=== PATIENT | male | born 1950 | race Caucasian/White ===

== ENCOUNTER → 2017-06-13 07:56 | Outpatient (CLI) | payer OTHER, SELFPAY ==
[2017-06-13 12:20] LABS: Absolute Lymphocyte Count 2.19 X10^3/ul (0.83-4.51); Basophil# 0.03 X10^3/uL; Basophil% 0.4 % (0-1); Eosinophil# 0.15 X10^3/uL; Eosinophils% 2.1 % (0-5); Hematocrit 41.9 % (40-54); Hemoglobin 14.3 g/dl (13.0-16.5); Lymphocyte # 2.19 X10^3/ul (4.0); Lymphocyte % 31.3 % (19-41); Mean Corp Hgb Conc 34.1 g/gl (32-36); Mean Corpuscular Hgb 31.6 pg (27.0-32.0); Mean Corpuscular Volume 92.5 fL (80-94); Mean Platelet Vol. 11.2 fl (6.2-12.0); Monocyte# 0.66 X10^3/uL; Monocyte% 9.4 % (0-10); Neutrophil # 3.96 X10^3/uL (2.7-7.7); Neutrophil % 56.7 % (47-70); Platelet Count 227 K/mm3 (150-450); RBC Distribution Width CV 13.3 % (11.6-14.6); Red Blood Count 4.53 M/mm3 (4.6-6.2)
[2017-06-13 12:28] LABS: POSITIVE COUNT NO; POSITIVE DIFFERENTIAL NO; POSITIVE MORPHOLOGY NO
[2017-06-13 12:33] LABS: Hemoglobin A1c 8.4 % (4.2-6.3)
[2017-06-13 12:38] LABS: Anion Gap 5 (5-15); BUN 19 mg/dL (7-18); BUN/Creat Ratio 20.9 RATIO (10-20); Chloride 103 mmol/L (98-107); Cholesterol 131 mg/dL (200); Creatinine, Serum 0.91 mg/dL (0.70-1.30); EST Glomerular Filtration Rate 89 mL/min (>60); Est Glom Filt Rate - Afr Amer 108 mL/min (>60); Glucose 179 mg/dL (74-106); High Density Lipoprotein 29 mg/dL; Magnesium 1.7 mg/dL (1.6-2.6); Potassium 4.1 mmol/L (3.5-5.1); Sodium Level 137 mmol/L (136-145); Thyroid Stim Hormone (TSH) 2.81 uIU/mL (0.358-3.74); Triglycerides 133 mg/dL; Very Low Density Lipoprotein 27 mg/dL (5-40)
[2017-06-13 12:44] LABS: Microalbumin:Creatinine Ratio 68.3 mg/g CRE (<30 mg/g CRE)
== END ==
PROVIDERS: Family Provider Family Medicine; PCP Family Medicine; Visit Provider Family Medicine
DX: I10 Essential (primary) hypertension (principal); E11.9 Type 2 diabetes mellitus without complications; I48.1 Persistent atrial fibrillation
CPT/HCPCS: 36415; 80048; 80061; 82043; 82570; 83036; 83735; 84443; 85025

== ENCOUNTER → 2017-09-02 08:21 | Outpatient (CLI) | payer OTHER, SELFPAY ==
--- NOTE | 2017-09-02 08:23 | RAD_ITS ---
STUDY: X-RAY - LEFT SHOULDER REASON FOR EXAM: Bilateral shoulder pain. TECHNIQUE: 3 view(s) of the shoulder. COMPARISON: None. FINDINGS: Normal glenohumeral articulation. There is acromioclavicular arthrosis. Normal acromion. Normal humeral head and visualized proximal humerus. The soft tissue structures are unremarkable. Normal visualized pulmonary apex. RAD/Shoulder min 2 Views IMPRESSION: Acromioclavicular arthrosis. Electronically Signed: David Puga MD at 13:27 EDT Tel , Service support ,
--- NOTE | 2017-09-02 08:23 | RAD_ITS ---
STUDY: X-RAY - RIGHT SHOULDER REASON FOR EXAM: Bilateral shoulder pain. TECHNIQUE: 3 view(s) of the shoulder. COMPARISON: None. FINDINGS: Normal glenohumeral articulation. Normal acromioclavicular joint. Normal acromion. Normal humeral head and visualized proximal humerus. The soft tissue structures are unremarkable. Normal visualized pulmonary apex. RAD/Shoulder min 2 Views IMPRESSION: Normal x-ray examination of the right shoulder. Electronically Signed: David Puga MD at 13:27 EDT Tel , Service support ,
== END ==
PROVIDERS: Family Provider Family Medicine; PCP Family Medicine; Visit Provider Orthopaedic Surgery
DX: M25.511 Pain in right shoulder (principal); M25.512 Pain in left shoulder
CPT/HCPCS: 73030

== ENCOUNTER → 2018-01-03 09:16 | Outpatient (CLI) | payer OTHER, SELFPAY ==
[2018-01-03 12:00] LABS: Absolute Lymphocyte Count 2.67 X10^3/ul (0.83-4.51); Absolute Neutrophil Count 4.1 X10^3/uL (2.0-7.7); Basophil# 0.03 X10^3/uL; Basophil% 0.4 % (0-1); Eosinophil# 0.13 X10^3/uL; Eosinophils% 1.7 % (0-5); Hematocrit 44.5 % (40-54); Hemoglobin 15.3 g/dl (13.0-16.5); Lymphocyte # 2.67 X10^3/ul (4.0); Lymphocyte % 34.9 % (19-41); Mean Corp Hgb Conc 34.4 g/gl (32-36); Mean Corpuscular Volume 93.1 fL (80-94); Mean Platelet Vol. 11.1 fl (6.2-12.0); Monocyte# 0.69 X10^3/uL; Neutrophil # 4.11 X10^3/uL (2.7-7.7); Neutrophil % 53.7 % (47-70); Platelet Count 245 K/mm3 (150-450); RBC Distribution Width CV 13.5 % (11.6-14.6); RBC Distribution Width SD 44.6 fl (35.1-43.9); Red Blood Count 4.78 M/mm3 (4.6-6.2); White Blood Count 7.7 K/mm3 (4.4-11.0)
[2018-01-03 12:06] LABS: POSITIVE COUNT NO; POSITIVE DIFFERENTIAL NO; POSITIVE MORPHOLOGY NO
[2018-01-03 12:11] LABS: Anion Gap 9 (5-15); BUN 12 mg/dL (7-18); BUN/Creat Ratio 12.8 RATIO (10-20); Calcium,Total 9.5 mg/dL (8.5-10.1); Chloride 102 mmol/L (98-107); Creatinine, Serum 0.93 mg/dL (0.70-1.30); EST Glomerular Filtration Rate 86 mL/min (>60); Est Glom Filt Rate - Afr Amer 104 mL/min (>60); Glucose 135 mg/dL (74-106); Sodium Level 141 mmol/L (136-145)
[2018-01-03 12:28] LABS: Microalbumin:Creatinine Ratio 116.2 mg/g CRE (<30 mg/g CRE)
== END ==
PROVIDERS: Family Provider Family Medicine; PCP Family Medicine; Visit Provider Family Medicine
DX: E11.9 Type 2 diabetes mellitus without complications (principal); I10 Essential (primary) hypertension; R80.9 Proteinuria, unspecified
CPT/HCPCS: 36415; 80048; 82043; 82570; 85025

== ENCOUNTER → 2018-04-05 08:43 | Outpatient (CLI) | payer OTHER, SELFPAY ==
[2018-04-05 13:28] LABS: Microalbumin:Creatinine Ratio 124.4 mg/g CRE (<30 mg/g CRE)
== END ==
PROVIDERS: Family Provider Family Medicine; PCP Family Medicine; Visit Provider Family Medicine
DX: I10 Essential (primary) hypertension (principal); E11.9 Type 2 diabetes mellitus without complications
CPT/HCPCS: 82043; 82570

== ENCOUNTER → 2018-05-05 09:10 | Outpatient (CLI) | payer OTHER, SELFPAY ==
[2018-05-05 08:53] VITALS: BMI 36.1
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
== END ==
PROVIDERS: Family Provider Family Medicine; PCP Family Medicine; Referring Provider Orthopaedic Surgery; Visit Provider Orthopaedic Surgery
DX: M25.561 Pain in right knee (principal); M79.661 Pain in right lower leg
CPT/HCPCS: 73564; 73590

== ENCOUNTER 2018-08-22 08:00 | Outpatient (RCR) | payer OTHER, SELFPAY ==
[2018-05-29 08:18] VITALS: BMI 36.1
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
--- NOTE | 2018-07-21 08:31 | HP.PTDCSUM ---
HP - PT D/C Summary It has been my pleasure to treat SEBASTIÁN CONROY under orders from Leonel Marshall DO, for the diagnosis of Lateral leg pain, h/o proximal tib/fib fracture for a total of 18 visit(s). Discharge Date: Please see the following information for a summary of their discharge status. - Subjective Subjective: No pain... tightness in the hip. Pt reports that as long as he has a railing he is ok. ( he is not consistently painfree but has great moments.(Sometimes his leg bothers him some). - Pain R Fibula pain Pain Intensity (Out of 10): 0 R hip Pain Intensity (Out of 10): 0 - Overall Improvement % Improvement: 75 - Objective Objective/Function: MMT: R knee flex 4/5 and L knee flex 4+/5, R knee ext 4/5 and L knee ext 4/5, B hip abd 4/5 and R hip ext 4-/5). Stairs: up and down recip with a little struggle with no handrail. Gait: slight antalgic gait and increase stance time on the right. Extremely tight R piriformis. Good B HS length - Goals Goal 1:: I HEP Goal Progress: Goal Met Goal 2:: Increase Le MMT (MMT at re-eval: R knee flex 4/5 and L knee flex 4+/5, R knee ext 4/5 and L knee ext 4/5, B hip abd 4/5 and R hip ext 4-/5). Goal Progress: Progressing Goal 3:: Be able to walk without an antalgic gait Goal Progress: Progressing Goal 4:: Decrease pain with walking to less than 1/10 with walking for a long period of time ( 15 min) Goal Progress: Progressing Goal 5:: Be able to stand for 20 min without having pain. Goal Progress: Goal Met - Plan Plan: Work on R piriformis flexability and R hip ER motion, R hip ext strength. 2X/ week for 2 and then 1X/ week for 2 weeks for ankle strengthening, knee strengthening, hip stretching (piriformis on the R) with HEP and US as needed. Then wean to HEP. - D/C Information If there are questions or concerns regarding this patient's physical therapy, please feel free to call me at [phone]. Thank you for the referral of this patient. Sincerely, Emily German, MPT
--- NOTE | 2018-08-22 08:32 | HP.PTDCSUM ---
HP - PT D/C Summary It has been my pleasure to treat SEBASTIÁN CONROY under orders from Leonel Marshall DO, for the diagnosis of Lateral leg pain, h/o proximal tib/fib fracture for a total of 24 visit(s). Discharge Date: 08/22/18 Please see the following information for a summary of their discharge status. - Subjective Subjective: He reports that he starts the morning out well and by the end of the day his R hip starts to bother him. His R hip pain is 1/10 and 7/10 by the end of the day. His R hip pain is worse in standing especially after sitting for a long time. He did not have a comfortable chair all day. He has no back pain. He gets some occ tightness in his fibula and he starts rolling and it feels better. He feels that he will always need ongoing. He is ready to get his hip evaluated. He thinks that the Dr will inject it. He has a recumbant bike, roller, step up, ball and has a membership to [employer]. Can not walk 15 min without having pain still. 150 yards on concrete he starts to have pain. Pt reports that he has a catch in his R hip with gait. - Pain R Fibula pain Pain Intensity (Out of 10): 0 R hip Pain Intensity (Out of 10): 1 - Overall Improvement % Improvement: 95 - Objective Objective/Function: B hip abd 4+/5, B hip flex 4/5, B hip ext 4/5, B knee flex and knee ext 4/5. Pt still has an antalgic gait but it is improved. Stairs: up and down recip with no rails for support with increase veering on descending the stairs. He still can not stand for 20 min without out pain nor walk for 15 min without having pain. - Goals Goal 1:: I HEP Goal Progress: Goal Met Goal 2:: Increase Le MMT (MMT at re-eval: R knee flex 4/5 and L knee flex 4+/5, R knee ext 4/5 and L knee ext 4/5, B hip abd 4/5 and R hip ext 4-/5). Goal Progress: Goal Met Goal 3:: Be able to walk without an antalgic gait Goal Progress: Progressing Goal 4:: Decrease pain with walking to less than 1/10 with walking for a long period of time ( 15 min) Goal Progress: Progressing Goal 5:: Be able to stand for 20 min without having pain. Goal Progress: Goal Met - Plan Plan: Pt to return to Dr Apodaca and have him take a look at his hip as he reports that he is in pain with walking, stairs, and getting up when sitting for a long time. He also reports a catch in hip hip with walking. We will DC at this time to HEP and physician referral for his R hip - D/C Information Discharge Comments: DC PT to HEP and physician referral for R hip If there are questions or concerns regarding this patient's physical therapy, please feel free to call me at [phone]. Thank you for the referral of this patient. Sincerely, Emily German, MPT
== END 2018-08-22 19:00 | disposition home or self-care (01) ==
LOC: PT 08:00
PROVIDERS: Family Provider Family Medicine; PCP Family Medicine; Visit Provider Orthopaedic Surgery
DX: M79.606 Pain in leg, unspecified (principal); Z87.81 Personal history of (healed) traumatic fracture
CPT/HCPCS: 97035; 97110; 97161; 97530

== ENCOUNTER → 2018-09-04 | Outpatient (CLI) | payer OTHER, SELFPAY ==
[2018-09-04 10:17] VITALS: BMI 36.1
--- NOTE | 2018-09-04 10:33 | RAD_ITS ---
STUDY: X-RAY - PELVIS AND RIGHT HIP REASON FOR EXAM: Male, 67 years old. Right hip pain TECHNIQUE: 3 views of the pelvis and hip. COMPARISON: None. FINDINGS: There is a non-specific bowel gas pattern. Normal visualized soft tissue structures. Normal bilateral iliac wings, sacroiliac joints and visualized sacrum. Normal bilateral superior and inferior pubic rami. Normal pubic symphysis. Normal bilateral ischial tuberosities. There are moderately severe degenerative changes with joint space narrowing of the right hip. Status post old ORIF changes of the left hip are seen. Heterotopic bone is seen superior to the left greater trochanter. RAD/HIP, UNI W/ Pelvis 2-3 Views IMPRESSION: The bony pelvis is intact with no evidence of fracture or lytic or blastic osseous process. Moderately severe degenerative changes with joint space narrowing of the right hip. Status post old ORIF changes of the left hip are seen. Heterotopic bone is noted superior to the left greater trochanter. Electronically Signed: Nikko Agee MD at 20:58 EDT , Service support ,
== END | disposition home or self-care (01) ==
LOC: HPRAD 10:32
PROVIDERS: Family Provider Family Medicine; PCP Family Medicine; Referring Provider Orthopaedic Surgery; Visit Provider Orthopaedic Surgery
DX: M25.551 Pain in right hip (principal)
CPT/HCPCS: 73502

== ENCOUNTER → 2018-09-19 | Outpatient (CLI) | payer OTHER, SELFPAY ==
[2018-09-11 07:55] VITALS: BMI 36.1
--- NOTE | 2018-09-11 11:29 | HP_ITS ---
Intake Vital Signs 09/11/18 Body Mass Index (BMI) 36.1 Intake Visit Reasons: RIGHT HIP Accompanied by: Self Is patient in pain?: Yes Pain scale (1-10): 6 Allergies Blowelh-Iju-Lzy Reductase Inhibitor Allergy (Verified 05/29/18 08:23) muscle pain Medications apixaban 5 mg tablet 5 mg PO BID 09/02/17 [History Confirmed 09/11/18] coenzyme Q10 200 mg capsule 200 mg PO QDAY 09/02/17 [History Confirmed 09/11/18] ezetimibe 10 mg tablet 10 mg PO QDAY 09/02/17 [History Confirmed 09/11/18] insulin detemir (U-100) 100 unit/mL (3 mL) subcutaneous pen 10 unit SC QHS 09/02/17 [History Confirmed 09/11/18] metformin ER 500 mg tablet,extended release 24hr 500 mg PO QDAY 09/02/17 [History Confirmed 09/11/18] metoprolol succinate ER 50 mg tablet,extended release 24 hr 50 mg PO QDAY 09/02/17 [History Confirmed 09/11/18] multivitamin tablet 1 tab PO QDAY 09/02/17 [History Confirmed 09/11/18] sitagliptin 100 mg tablet 100 mg PO QDAY 09/02/17 [History Confirmed 09/11/18] vitamin B complex tablet 1 tab PO QDAY 09/02/17 [History Confirmed 09/11/18] amlodipine 5 mg tablet 5 mg PO DAILY 05/05/18 [History Confirmed 09/11/18] losartan 100 mg-hydrochlorothiazide 25 mg tablet 1 tab PO DAILY 09/11/18 [History Confirmed 09/11/18] [facility] Medical History (Updated 09/02/17 @ 08:17 by Purvi Chowdary) Diabetes (Acute) Hypertension (Chronic) Surgical History (Updated 09/02/17 @ 08:18 by Purvi Chowdary) h/o left femur nail (Acute) HPI RIGHT HIP: Chief Complaint: Right hip Surgical H&P: Yes Details: Parts of this documentation were recorded by a scribe, this documentation accurately reflects the service provided and the decisions made by , Leonel Marshall, 09/11/18 0755. SEBASTIÁN CONROY JR is a 67 year old M here today for right hip pain. Patient has had PT for his right leg. Does have right groin pain. Wishes to discuss right total hip. Patient is on Eliquis and unable to use anti inflammatories as well as PT that was only helpful during and the relief did not extend past the appointment. ROS Const Reports system reviewed and no additional complaints, except as docu Eyes Reports system reviewed and no additional complaints, except as docu ENT Reports system reviewed and no additional complaints, except as docu Card Reports system reviewed and no additional complaints, except as docu Resp Reports system reviewed and no additional complaints, except as docu GI Reports system reviewed and no additional complaints, except as docu Reports system reviewed and no additional complaints, except as docu Musc Reports system reviewed and no additional complaints, except as docu, Reports as per HPI Skin/Breast Reports system reviewed and no additional complaints, except as docu Neuro Yes system reviewed and no additional complaints, except as docu Psych Reports system reviewed and no additional complaints, except as docu Endo Reports system reviewed and no additional complaints, except as docu Odell/Lymph Reports system reviewed and no additional complaints, except as docu Aller/Immun Reports system reviewed and no additional complaints, except as docu Ortho Exam Right Hip Skin: No Ecchymosis, No soft tissue swelling, No Erythema internal rotation @90 degree flexion: 3 degrees external rotation @90 degree extension: 75 degrees abduction: 45 degrees Special Tests: Yes RROM flexion pain HIP: Right Hip Skin: No Ecchymosis, No soft tissue swelling, No Erythema internal rotation @90 degree flexion: 3 external rotation @90 degree extension: 75 abduction: 45 Special Tests: Yes RROM flexion pain HIP: Slightly decreased abduction compared to contralateral Supplemental Info 09/04/2018 x-ray right hip: Severe joint space narrowing subchondral sclerosis Assessment & Plan Problems 1. Primary osteoarthritis of right hip M16.11 Plan Reviewed the risks and post op restrictions including rehab at home and progression to outpatient PT. He has upcoming travel and discussed the gluteal incisional discomfort he may still have in October. He has failed conservative treatment including PT and due to his prescriptions he is unable to use anti inflammatories. Answered patients questions regarding biking and reviewed hip precautions to limit risk of dislocation. We will get clearance from his PCP, Dr Booth, and discuss holding his eliquis for at least 72 hrs prior to surgery. Instructed to eat a healthy diet and monitor his blood sugar leading to surgery to have better maintenance post op. Risks, benefits and alternatives of surgery reviewed including but not limited to bleeding, infection, nerve, artery and/or tissue damage, fracture, VTE, leg length discrepancy, dislocation, need for hip precautions, continued pain and expected post-operative course. Follow up post op or sooner if pain, swelling, numbness or associated symptoms, or concerns develop. All questions answered. Patient in agreement of plan. Medications New: losartan-hydrochlorothiazide 100-25 mg 1 tab PO DAILY Coding Level of Care Code Off vis,est,level 3 Diagnoses Primary osteoarthritis of right hip M16.11 ??Osteoarthritis type: primary 09/11/18 1130 <Electronically signed by Leonel nicole DO> Date _ Leonel Marshall DO
[2018-09-19 13:33] VITALS: BP 137/81; PULSE 73; RESP 18; TEMP 36.2; O2SAT 96; BMI 36.3
--- NOTE | 2018-09-19 15:26 | SDCEKG_ITS ---
Test Reason : Blood Pressure : / mmHG Vent. Rate : 068 BPM Atrial Rate : 258 BPM P-R Int : 000 ms QRS Dur : 092 ms QT Int : 398 ms P-R-T Axes : 000 014 019 degrees QTc Int : 423 ms Atrial fibrillation Abnormal ECG Confirmed by LORENZO MEDINA, DANI ([id number]), technical writer and editor HUGO GEORGE ([id number]) on 09/25/2018 12:59:02 PM Referred By: Leonel Marshall Confirmed By:DANIELA VENTURA MD
[2018-09-19 15:39] LABS: Hematocrit 41.9 % (40-54); Hemoglobin 14.3 g/dL (13.0-16.5); Mean Corp Hgb Conc 34.1 g/dL (32-36); Mean Corpuscular Hgb 30.4 pg (27.0-32.0); Mean Corpuscular Volume 89.1 fL (80-94); Mean Platelet Vol. 10.9 fl (6.2-12.0); Platelet Count 227 K/mm3 (150-450); RBC Distribution Width CV 12.5 % (11.6-14.6); RBC Distribution Width SD 40.8 fl (35.1-43.9)
[2018-09-19 16:17] LABS: Anion Gap 9 (5-15); BUN 12 mg/dL (7-18); BUN/Creat Ratio 14.6 RATIO (10-20); Calcium,Total 9.4 mg/dL (8.5-10.1); Chloride 103 mmol/L (98-107); Creatinine, Serum 0.82 mg/dL (0.70-1.30); EST Glomerular Filtration Rate 100 mL/min (>60); Est Glom Filt Rate - Afr Amer 120 mL/min (>60); Estimated Creatinine Clearance 104.42 ml/min; Glucose 126 mg/dL (74-106); Potassium 3.6 mmol/L (3.5-5.1); Sodium Level 141 mmol/L (136-145)
[2018-09-19 17:22] LABS: Hemoglobin A1c 7.7 % (4.2-6.3)
--- NOTE | 2018-09-21 14:17 | CASEMGMT ---
Attempted to contact patient to discuss discharge plans for upcoming surgery. Call went straight to voicemail. Karina Carter LPN Clinical Support
--- OUTSIDE RECORDS SUMMARY | 2018-10-21 18:47 | XMS RPT_ITS | CCD ---
:1950 External Reference #:[id number] Author Organization [employer] Care Team Providers Name Role Phone TERRENCE, A Unavailable Unavailable TERRENCE, A Unavailable Unavailable TERRENCE, A Unavailable Unavailable Allergies Reported Allergen Reaction(s) Severity Date of Onset Location Hmg-Coa Reductase AOF 10-07-2014 - [facility] Main Inhibitors (Statins) [place] Repository Translations: [ [id number] REDUCTASE INHIBITORS] Problems Category Problem Name Status Date Location Cardiac dysrhythmias Persistent atrial Active 10-12-2013 - Cl [facility] fibrillation [place] (0000 0) Results Result Name Value Range Unit Interpretation Flag Date Location progress on 2017-09 Protein mass HNO ID: [id number]: Nikos sandoval 10-11-2017 [place] conc KaminskiService: (none)Author Type: Clinic PhysicianType: Progress NotesFiled: [place] 10/11/2017 9:25 AMNote Text:Heart and ([id number]) [facility] InstituteRobert and [facility] Department of Cardiovascular MedicineSECTION OF CLINICAL CARDIOLOGYOUTPATIENT VISIT DATE October 11, 2017OUTPATIENT VISIT TYPEESTABLISHEDPATIENT: Sebastián Conory Jr.DATE OF : 3DATE: 10/11/2017INTERVAL HISTORY: Mr. Conroy comes for a follow up visit for chronic afib. The last visit with me was 1 year ago. He is not having any problems.He has been checking his blood pressure at home and he typically runs MJL791-951 mmHg. He estimates that he has more 140's than 130's.ROS:Negative for cough, wheezing, shortness of breath and chest painNegative for leg swelling, palpitations, claudication, orthopnea,paroxysmal nocturnal, dyspnea, syncope.All other reviewed and negative other than HPI.CURRENT MEDICATIONS:insulin detemir (LEVEMIR) 100 unit/mL (3 mL) inpn injection Inject 66Units subcutaneously daily at bedtime.apixaban (ELIQUIS) 5 mg tab tab(s) Take by mouth twice daily.ezetimibe (ZETIA) 10 mg tablet Take 10 mg by mouth once daily.metoprolol succinate ER (TOPROL XL) 50 mg 24 hr tablet Take 1 tablet bymouth once daily.losartan-hydrochlorothiazide (HYZAAR) 100-25 mg per tablet Take 1 tabletby mouth once daily.metFORMIN 500 mg tablet Take two tablets twice dailysitaGLIPtin (JANUVIA) 50 mg tablet Take 1 tablet by mouth once daily.coenzyme Q10 100 mg cap Take 2 capsules by mouth twice daily.PHYSICAL EXAMINATION:General: No distress, alert and orientedVital signs: BP 146/80 Pulse 72 Ht 6' 2 (1.88m) Wt 288 lb (130.6kg) BMI 36.96 kg/(m2).Neck: no JVDLungs: clear to auscultationCardiac exam: RRR normal S1, S2 no murmursExtremities: warm, well perfused, no edemaEKG: afib rate of 72 - unchangedCARDIAC STUDIES:Echo 12/2013CONCLUSIONS:- Exam indication: AFib- The left ventricle is normal in size. There is moderate concentric leftventricular hypertrophy. Left ventricular systolic function is normal. EF= 62 ?5% (2D biplane) Baseline left ventricular diastolic function was notevaluated due?to AF.- The right ventricle is normal in size. Right ventricular systolicfunction isnormal.- The left atrial cavity is moderately dilated.- The right atrial cavity is dilated.- No prior echocardiographic exam available for comparison.? Last LDL:LDL Cholesterol (mg/dL)Date Value01/29/2014 125Impression:1. Persistent atrial fibrillation (HCC)2. TONY on CPAP3. Type 2 diabetes mellitus with diabetic mononeuropathy, with long-termcurrent use of insulin (HCC)4. Essential hypertension5. Anticoagulant long-term use with apixaban6. Obesity (BMI 30-39.9)7. Statin intolerancePlan:Patient Instructions- overall from a heart standpoint you are doing well- your heart rate iswell controlled in afib, and you have no symptoms from afib; your blood isthinned with Eliquis to prevent a stroke and you do not have any bleedingproblems- your blood pressure could be better controlled; ideal goal 120/80- ADD amlodipine 5 mg daily- call me if you have leg swelling with this medication- also, schedule an echocardiogram (ultrasound of the heart) in [place](call [phone], OR Zainab [phone])- make follow up appt in 1 year; you can see me OR Dr. Kenney or in [place] - call Zainab at # above to scheduleThank you very much for allowing me to assist in the care of Sebastián Velascozulma Armas. Please do not hesitate to contact me if you have questions orconcerns.Nikos Ocampo, [facility]: Tha Rasmussen MD ([facility])[address] [address]h: [phone]: [phone] ekg1 on 2017-10-11 Protein mass NAME : HUGO CONROY : Normal 0 10-11-2017 [facility] conc [id number] : 1950 [place] ([id number]) Gender : MaleRace : CaucasianORD : Procedure Date : Oct 11 2017 07:58:04Edit Date : Oct 17 2017 08:08:28 Diagnosis:ATRIAL FIBRILLATIONABNORMAL ECGConfirmed by NIKOS OCAMPO M.D. ([id number]) on 10/17/2017 8:08:22 AM Ventricular Rate : 72 BPMAtrial Rate : 71 BPMQRS Duration : 84 msQ-T Interval : 384 msQTC Calculation(Bezet) : 420 msR Nixa : 26 degreesT Nixa : 26 degrees Test Reason : Location : 503 : BWCARD Overread By : NIKOS OCAMPO M.D.Edited By : NIKOS OCAMPO M.D.Referred By : Ran OCAMPO by : martin on 2017-10-11 CNJOSE DE JESUS Office Visit Normal 10-11-2017 Silvano and (CARDJUAREZ) --------SEBASTIÁN CONROY JR. ([id number]) 1950 MDate Time Provider Department10/11/17 8:40 AM NIKOS OCAMPO During your visit today, we recorded the following information about you: Pulse Blood pressure Weight (59428 ) Height 72/minute 146/80 130. 6 kg 1.88 Lalo Ocampo MD 10/11/2017 9:25 AM [facility] and [facility] Department of Cardiovascular MedicineSECTION OF CLINICAL CARDIOLOGYOUTPATIENT VISIT D ATE October 11, 2017OUTPATIENT VISIT TYPEESTABLISHEDPATIENT: Sebastián Conroy Jr.DATE OF : 10/22ATE: 10/11/2017INTERVAL HISTORY: Mr. Conroy comes for a follow up visit for chronic afib. Thel ast visit with me was 1 year ago. He is not having any problems.He has been checking his blood pres sure at home and he typically runs YZN720-800 mmHg. He estimates that he has more 140's than 130's.RO S:Negative for cough, wheezing, shortness of breath and chest painNegative for leg swelling, palpitatio ns, claudication, orthopnea, paroxysmalnocturnal, dyspnea, syncope.All other reviewed and negative other than HPI.CURRENT MEDICATIONS:insulin detemir (LEVEMIR) 100 unit/mL (3 mL) inpn injection Inject 66 Unitssubcutaneously daily at bedtime.apixaban (ELIQUIS) 5 mg tab tab(s) Take by mouth twice d aily.ezetimibe (ZETIA) 10 mg tablet Take 10 mg by mouth once daily.metoprolol succinate E R (TOPROL XL) 50 mg 24 hr tablet Take 1 tablet by mouthonce daily.losartan-hydrochloroth iazide (HYZAAR) 100-25 mg per tablet Take 1 tablet bymouth once daily.metFORMIN 500 mg table t Take two tablets twice dailysitaGLIPtin (JANUVIA) 50 mg tablet Take 1 tablet by mouth once daily.c oenzyme Q10 100 mg cap Take 2 capsules by mouth twice daily.PHYSICAL EXAMINATION:General: No dist ress, alert and orientedVital signs: BP 146/80 Pulse 72 Ht 6' 2 (1.88m) Wt 288 lb (130.6kg ) BMI 36.96 kg/(m2).Neck: no JVDLungs: clear to auscultationCardiac exam: RRR normal S1, S2 no murmurs Extremities: warm, well perfused, no edemaEKG: afib rate of 72 - unchangedCARDIAC STUDIES:Ech o 12/2013CONCLUSIONS:- Exam indication: AFib- The left ventricle is normal in size. There is moderate c oncentric leftventricular hypertrophy. Left ventricular systolic function is normal. EF = 62?5% (2D bi plane) Baseline left ventricular diastolic function was not evaluateddue?to AF.- The rig ht ventricle is normal in size. Right ventricular systolic function isnormal.- The left atrial c avity is moderately dilated.- The right atrial cavity is dilated.- No prior echocardiographic exam available for comparison.? Last LDL:LDL Cholesterol (mg/dL)Date Value01/29/2014 125Impression:1. Persistent atrial fibrillati on (HCC)2. TONY on CPAP3. Type 2 diabetes mellitus with diabetic mononeuropathy, with long-te rmcurrent use of insulin (HCC)4. Essential hypertension5. Anticoagulant long-term use with apixaban6 . Obesity (BMI 30-39.9)7. Statin intolerancePlan:Patient Instructions- overall from a heart standpo int you are doing well- your heart rate is wellcontrolled in afib, and you have no symptoms from afib; your blood is thinnedwith Eliquis to prevent a stroke and you do not have any bleeding problems- your blood pressure could be better controlled; ideal goal 120/80- ADD amlodipine 5 mg daily- call me if you have leg swelling with this medication- also, schedule an echocardiogram (ultrasound o f the heart) in [place] ([phone], OR Zainab [phone])- make follow up appt in 1 year; yo u can see me OR Dr. Kenney [place] Dr[place] - call Zainab at # above to scheduleThank you very much for allowing me to assist in the care of Sebastián ConroyAnnajuan ramonRahul. Please do not hesitate to contact me if yo u have questions or concerns.Nikos Ocampo, [facility]: Tha Rasmussen MD (DrC)[address] [place], [place] [address]Ttgwm: [phone]: [phone] A Kaminski, MD 10/11/2017 9:24 AM Signed- jose de jesus mckeon from a heart standpoint you are doing well- your heart rate is wellcontrolled in afib, and you have no symptoms from afib; your blood is thinnedwith Eliquis to prevent a stroke and you do not have any bleeding problems- your blood pressure could be better controlled; ideal goal 120/8 0- ADD amlodipine 5 mg daily- call me if you have leg swelling with this medication- also, schedule a n echocardiogram (ultrasound of the heart) in [place] ([phone], OR Zainab [phone])- make foll ow up appt in 1 year; you can see me OR Dr. Kenney or Dr. [place] - call Zainab at # above to yeison eduleReferring Provider: SELF [[id number]]Allergies As of Date: 10/11/2017(No Known Allergies)Date Reviewe d: 10/11/2017Reviewed by: Susanne Araiza Ma - Fully AssessedReason for Visit: year follow up [Other ]Primary Visit Diagnosis:Persistent atrial fibrillation (HCC) [I48.1] Other Visit Diagnoses:TONY on CPAP [G47.33, Z99.89] Type 2 diabetes mellitus with diabetic mononeuropathy, with long-te rm current use of insulin (HCC) [E11.41, Z79.4] Essential hypertension [I10] Anticoagulant long-ter m use with apixaban [Z79.01] Obesity (BMI 30-39.9) [E66.9] Statin intolerance [Z78.9]Order(s): ECG COMPLETE W INTERPRETATION [ECG01] Order #: [id number] FUTURE ECHO [689554] Order #: [id number] Qty: 1 FUTURE amLODIPine (NORVASC) 5 mg tabletTake 1 tablet by mouth once daily.Disp: 90 tabletRfl: 3P rescriptions as of 10/11/2017 Sig: INSULIN DETEMIR (U-100) 100 U* Inject 66 Units subcutaneousl* APIX ABAN 5 MG TABLET Take by mouth twice daily. EZETIMIBE 10 MG TABLET Take 10 mg by mouth once stacy* METOP ROLOL SUCCINATE ER 50 MG* Take 1 tablet by mouth once d* LOSARTAN 100 MG-HYDROCHLOROTH* Take 1 tab let by mouth once d* METFORMIN 500 MG TABLET Take two tablets twice daily SITAGLIPTIN 50 MG TABLET Dany e 1 tablet by mouth once d* COENZYME Q10 100 MG CAPSULE Take 2 capsules by mouth twic* AMLODIPINE 5 MG TABLET Take 1 tablet by mouth once d*Problem List As Of Date 10/11/2017 Noted Resolved Persistent at rial fibrillation (HCC) [I48.1] INVALID FOR* Diabetes mellitus (HCC) [E11.9] INVALID FOR* Obesity (BMI 30-39.9) [E66.9] INVALID FOR* TONY on CPAP [G47.33, Z99.89] INVALID FOR* Anticoagulant long-term use with dabigatran [Z7*INVALID FOR* Hyperlipidemia [E78.5] INVALID FOR* Lightheadedness [R42] INVALI D FOR* Essential hypertension [I10] INVALID FOR* Statin intolerance [Z78.9] INVALID FOR* Other i nstructions from your clinician: - overall from a heart standpoint you are doing well- your heart rate is well controlled in afib, and you have no symptoms from afib; your blood is thinned with Eliquis to p revent a stroke and you do not have any bleeding problems - your blood pressure could be better con trolled; ideal goal 120/80 - ADD amlodipine 5 mg daily - call me if you have leg swelling with this medication - also, schedule an echocardiogram (ultrasound of the heart) in [place] (call [phone], O R Zainab [phone]) - make follow up appt in 1 year; you can see me OR Dr. Kenney or Dr. Tabares in [facility] - call Zainab at # above to schedulePrescriptions ordered this encounter Disp Refills Start End AMLOD IPINE 5 MG TABLET 90 t* 3 10/11/2017 Route: ORAL Sig: Take 1 tablet by mouth once daily.Disposition : Return in about 1 year (around 10/11/2018).Follow- up and Disposition History RecordedEncana Castillo [facility]: [id number] Status:Closed by NIKOS OCAMPO MD on 10/11/17 cbc on 2016-11-11 Absolute nRBC 0.02 0.00 k/uL High 11-11-2016 [facility] ([id number]) Comment: Performed By: #### CBC ####C [place] [id number]- [phone] Erythrocyte distribution 13.4 11.5-15.0 % Normal 11-11 [facility] width Auto Ratio (RBC) [place] ([address]) Comment: Performed By: #### CBC ####C [place] [id number]- [phone] Hematocrit Auto Volume 44.1 39.0-51.0 % Normal 017 [facility] (Bld) [facility] ([address]) Comment: Performed By: #### CBC ####C [place] [id number]- [phone] Hemoglobin mass conc 14.7 13.0-17.0 g/dL Normal 7 [facility] ([facility] ([address]) Comment: Performed By: #### CBC ####C [place] [id number]- [phone] MCH Auto Entitic mass 31.5 26.0-34.0 pG Normal 11-12-19 17 [facility] (RBC) [place] ([address]) Comment: Performed By: #### CBC ####C [place] [id number]- [phone] MCHC Auto mass conc 33.3 30.5-36.0 g/dL Normal 11-11-2016 [facility] (RBC) [place] ([address]) Comment: Performed By: #### CBC ####C [place] [id number]- [phone] MCV Auto Entitic volume 94.4 80.0-100.0 fL Normal 11-11 [facility] (RBC) [place] ([address]) Comment: Performed By: #### CBC ####C [address] [id number] [phone] Platelet mean volume Auto 11.1 9.0-12.7 fL Normal 10-23 [facility] Entitic volume (Bld) [place] ([address]) Comment: Performed By: #### CBC ####C [address] [id number] [phone] Platelets Auto #/vol 193 150-400 k/uL Normal 7 [facility] (Bld) [place] ([address]) Comment: Performed By: #### CBC ####C [address] [id number] [phone] RBC Auto #/vol (Bld) 4.67 4.20-6.00 m/uL Normal 7 [facility] ([address]) Comment: Performed By: #### CBC ####C [address] [id number] [phone] WBC Auto #/vol (Bld) 7.55 3.70-11.00 k/uL Normal 11-12-19 17 [facility] ([address]) Comment: Performed By: #### CBC ####C [address] [id number] [phone] basic metabolic panl on 2016-11-11 Anion gap 3 molar conc 11 9-18 mmol/L Normal 017 [facility] ([address]) Comment: Performed By: #### BMP ####C [address] [id number]- [phone] Calcium mass conc 9.6 8.5-10.2 mg/dL Normal 11-11-2016 [facility] ([address]) Comment: Performed By: #### BMP ####C [place] [id number]- [phone] Chloride molar conc 98 97-105 mmol/L Normal 11-11-2016 [facility] ([address]) Comment: Performed By: #### BMP ####C [place] [id number]- [phone] CO2 molar conc 29 22-30 mmol/L Normal 11-11-2016 [facility] ([address]) Comment: Performed By: #### BMP ####C [place] [id number]- [phone] Creatinine mass conc 0.89 0.73-1.22 mg/dL Normal 7 [facility] ([address]) Comment: Performed By: #### BMP ####C [place] [id number]- [phone] eGFR- Amer. >60 Normal 11-11-2016 [facility] ([address]) Comment: Performed By: #### BMP ####C [place] [id number]- [phone] GFR/1.73 sq M predicted >60 mL/min/{1.73_m2} Normal 11-11-2016 [facility] among non-blacks MDRD [place] ([address]) vol rate/area (S/P/Bld) Comment: Result Comment: eGFR (Estima bony GFR) Units of measure: mL/min/1.73 meters squaredeGFR is derived from the reexpressed MDRD Study equation using the following parameters: serum creatinine, age, gender and race. The creatinine assay has been calibrated to be traceable to IDMS.An eGFR <60 mL/min/1.73m2 for >3 months is consistent with chronic kidney disease. Refer to KDOQI guidelines for clinical inte rpretation.In patients with unstable renal function, e.g. those with ac [place] kidney injury, the eGFR may not accurately reflect actual GFR. Performed By: #### BMP ####C [place] [id number] [place], [place] [id number]- [phone] Glucose mass conc 171 74-99 mg/dL High 11-11-2016 [facility] ([address]) Comment: Result Comment: The [place] Diabetes Association (ADA) provides guidance for cutoff values for fastin g glucose and random glucose. The ADA defines fasting as no caloric intake for at least 8 hours. Fasting plasma glucose results between 100 to 125 m g/dL indicate increased risk for diabetes (prediabetes).Fasting plasma glucose results greater than or equal to 126 mg/dL meet the criteria for diagnosis of diabetes. In the absence of unequivocal hyperglycemia, r esults should be confirmed by repeat testing. In a patient with classic sympt oms of hyperglycemia or hyperglycemic crisis, random plasma glucose result s greater than or equal to 200 mg/dL meet the criteria for diagnosis of di abetes.Reference: Standards of Medical Care in Diabetes 2016, [place] Di[employer] etes Association. Diabetes Care. 2016.39(Suppl 1). Performed By: #### BMP ####C [address] [id number]- [phone] Potassium molar conc 4.0 3.7-5.1 mmol/L Normal 7 [facility] ([address]) Comment: Performed By: #### BMP ####C [address] [id number]- [phone] Sodium molar conc 138 136-144 mmol/L Normal 11-11-2016 [facility] ([address]) Comment: Performed By: #### BMP ####C [address] [id number]- [phone] Urea nitrogen mass conc 15 9-24 mg/dL Normal 2016 [facility] ([address]) Comment: Performed By: #### BMP ####C [address] [id number]- [phone] Encounters Date Type Reason Provider Location 10-27-2017 - Patient encounter NIKOS OCAMPO [facility] 10-27-2017 [place] (0000 0) 10-11-2017 - [facility] 10-12-2017 [place] (0000 0) 11-11-2016 - [facility] 11-11-2016 [place] (0000 0) Summary Purpose Family History No Family History Records Found Advance Directives No Advanced Directives Records Found Additional Source Comments FOR RECORDS PERTAINING TO PATIENTS WHO ARE OR HAVE BEEN ENROLLED IN A CHEMICAL DEPENDENCY/SUBSTANCE ABUSE PROGRAM, SOME INFORMATION MAY BE OMITTED. This clinical summary was aggregated from multiple sources. Caution should be exercised in using it in the provision of clinical care. This summary normalizes information from multiple sources, and as a consequence, information in this document may materially changethe coding, format and clinical context of patient data. In addition, data may be omittedin some cases. CLINICAL DECISIONS SHOULD BE BASED ON THE PRIMARY CLINICAL RECORDS. [facility] provides no warranty or guarantee of the accuracy or completeness of information in this document. UNRECOGNIZED CONTENT PROVIDED BELOW FOR UNRECOGNIZED SECTION No Status Records Found UNRECOGNIZED CONTENT PROVIDED BELOW FOR UNRECOGNIZED SECTION INFORMATION SOURCE DATE CREATED AUTHOR AUTHOR'S ORGANIZATIO N 11/04/2017 [facility] michael
== END | disposition home or self-care (01) ==
LOC: PAT 10-20 14:49
PROVIDERS: Family Provider Family Medicine; PCP Family Medicine; Referring Provider Orthopaedic Surgery; Visit Provider Orthopaedic Surgery
DX: Z01.818 Encounter for other preprocedural examination (principal)
CPT/HCPCS: 36415; 80048; 83036; 85027; 87081; 93005

== ENCOUNTER → 2018-10-30 06:09 | Outpatient (CLI) | payer OTHER, SELFPAY ==
[2018-10-11 12:41] VITALS: BMI 35.6
--- NOTE | 2018-10-30 17:42 | STRESSREP ---
Stress Test Report Pharmacologic myocardial perfusion stress test. 67-year-old man with a history of atrial fibrillation and hypertension. Stress protocol: Resting EKG demonstrates atrial for ablation with a rate of 76 bpm normal intervals are noted resting blood pressures 142/88 mmHg. 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 The maximum heart rate attained was 100 bpm which was 64% of maximum predicted heart rate the maximum workload was 1 metabolic equivalent. At rest there were no ST or T wave changes noted suggest abnormal flow reserve a peak infusion nonspecific ST-T wave changes were noted. The resting blood pressure was 142/88 with a final blood pressure 148/82. No clinical angina was noted. Myocardial perfusion protocol. 14.8 mCi of technetium 99m sestamibi was injected at rest. 0.4 mg of regadenoson was infused per usual protocol peak infusion 44.7 mCi of technetium 99m sestamibi was injected stress images were obtained stress and rest images were reconstructed and compared in the short axis vertical long horizontal long axis. Gated images were also obtained per Perfusion SPECT analysis: Review of the stress images demonstrate normal cardiac silhouette size. There is mildly reduced uptake noted in the distal anterior wall on the stress and resting images to a similar extent suggesting anterior wall attenuation. No obvious ischemia is noted. Previous small area of anterior infarct cannot be completely excluded though unlikely. Gated SPECT analysis: The gated ejection fraction is noted to be 52%. Conclusion: Pharmacologic myocardial perfusion stress test with no obvious evidence of ischemia. Atrial fibrillation noted. Preserved ejection fraction.
== END ==
PROVIDERS: Family Provider Family Medicine; PCP Family Medicine; Referring Provider Internal Medicine Cardiovascular Disease; Visit Provider Internal Medicine Cardiovascular Disease
DX: I25.10 Atherosclerotic heart disease of native coronary artery without angina pectoris (principal); I10 Essential (primary) hypertension; I48.2 Chronic atrial fibrillation
CPT/HCPCS: 78452; 93017; A9500; A4216; J2785

== ENCOUNTER → 2018-11-27 | Outpatient (CLI) | payer OTHER, SELFPAY ==
[2018-10-11 12:41] VITALS: BMI 35.6
--- NOTE | 2018-11-27 08:07 | RAD_ITS ---
STUDY: X-RAY - PELVIS REASON FOR EXAM: Male, 68 years old. Right hip pain. TECHNIQUE: One view of the pelvis was obtained. COMPARISON: 09/04/2018 radiographs. FINDINGS: No apparent acute fracture or acute osseous abnormality. Chronic right inferior pubic ramus fracture unchanged. Moderate to severe right hip osteoarthritis with loss of cephalad joint space. Prior ORIF left femur partially visible, similar to prior. RAD/Pelvis 1 or 2 Views IMPRESSION: Moderate to severe right hip osteoarthritis, similar to prior. Electronically Signed: Nikko Lugo, at 8:27 EDT Tel , Service support ,
== END | disposition home or self-care (01) ==
LOC: HPRAD 08:05
PROVIDERS: Family Provider Family Medicine; PCP Family Medicine; Referring Provider Physician Assistant; Visit Provider Physician Assistant
DX: M16.11 Unilateral primary osteoarthritis, right hip (principal)
CPT/HCPCS: 72170

== ENCOUNTER 2018-12-05 05:16 | Inpatient (IN) | payer OTHER, MEDICARE, SELFPAY ==
[2018-10-11 12:41] VITALS: BMI 35.6
[2018-11-28 14:45] VITALS: BMI 35.6
[2018-11-30 14:13] VITALS: BP 133/80; PULSE 74; RESP 16; TEMP 36.2; O2SAT 97; BMI 35.9
[2018-12-05] VITALS (12 sets, daily range): BP systolic 92–142; BP diastolic 60–88; PULSE 50–77; RESP 16–18; TEMP 36.2–37.1; O2SAT 94–100; BMI 35.9
[2018-12-05 05:51] LABS: Bedside Glucose 113 mg/dL (70-110)
[2018-12-05] MEDS: Gabapentin 600 MG Tablet PO (06:04)
[2018-12-05] MEDS: Celecoxib 200 MG Capsule 400 MG PO (06:04)
[2018-12-05] MEDS: Acetaminophen 500 MG Tablet 1000 MG PO ×3 (06:04→21:33)
[2018-12-05] MEDS: Scopolamine 1mg/72hr Patch 1 PATCH TRANSDERM. (06:06)
[2018-12-05] MEDS: Lactated Ringers 1,000 ML 100 ML IV (06:28)
[2018-12-05] MEDS: Magnesium Sulfate 4gm/100mL 4 GM/100 ML IV.SOLN. IV (06:29)
--- NOTE | 2018-12-05 07:24 | PCM.HP.BLA ---
History and Physical Date of Admission: 12/05/18 Intake Vital Signs 11/28/18 Body Mass Index (BMI) 35.6 Intake Visit Reasons: sign surgery consent Allergies Rrtouqt-Dvd-Adg Reductase Inhibitor Allergy (Verified 10/11/18 12:43) muscle pain [facility] Medical History (Updated 10/08/18 @ 19:33 by Amy Chou) Hyperlipidemia (Chronic) Chronic atrial fibrillation (Chronic) Essential (primary) hypertension (Chronic) Diabetic neuropathy (Chronic) Obesity (Chronic) Obstructive sleep apnea (Chronic) Osteoarthritis (Chronic) Type 2 diabetes mellitus (Chronic) Surgical History (Updated 10/08/18 @ 19:23 by Amy Chou) h/o left femur nail (Resolved) Family History (Updated 10/08/18 @ 19:29 by Amy Chou) Mother CAD (coronary artery disease) CABG age 56 Diabetes Hypertension Father Hypertension Colon cancer Social History (Updated 11/28/18 @ 15:07 by BRAYAN Pan) Smoking Status: Never smoker HPI sign surgery consent: Details: Parts of this documentation were recorded by a scribe, this documentation accurately reflects the service provided and the decisions made by , BRAYAN Pan 11/28/18 [id number]. SEBASTIÁN CONROY is a 68 year old M here today for right hip pain. Patient is here today to sing surgery consent for right hip replacement. Patient does not have an x-ray of his pelvis with the ortho ball. These images where obtained today. Denies any changes in pain or medications. ROS Const Reports weakness Musc Reports muscle weakness, Denies numbness, Denies radiating pain into limb, Reports stiffness, Denies tingling Skin/Breast Denies redness, Denies skin swelling Neuro No numbness, No tingling, Yes weakness Ortho Exam Right Hip Skin: No Ecchymosis, No soft tissue swelling, No Erythema Special Tests: No TTP Greater Troch, Yes RROM flexion pain HIP: No abnormalities on inspection of the hip. He has decreased ROM compared to the left side with most notably internal rotation (slightly with abduction). HE does have some discomfort with internal ROM as well. Assessment & Plan Problems 1. Right hip pain M25.551 2. Osteoarthritis of right hip, unspecified osteoarthritis type M16.11 Plan Patient presents to signs surgical consent for right total hip arthroplasty. Patient was to have this done previously at the same time had to cancel due to his A1C being elevated. HE has already had discussions and has his questions answered previously. HE had a few other questions today that were answered to his satisfaction. We did discuss the procedure as well as recovery again today. We discussed risks and benefits of the procedure and consent was signed in office today. Patient will need to notify us when his A1C is available which really is the limiting factor from here. Once we have this and is desired number will schedule surgery date. He will be contacted by surgery and anaesthesia regarding pre-anasthesia testing. He will not know the time of surgery until the day before. Patient already has his anti-bacterial cleanser. Patient does take a blood thinner to be stopped 72 hours prior to the procedure. Notify in the mean time of any other concerns or questions. Orders Orders: Pelvis 1 or 2 Views 11/27/18 M16.11 Coding Level of Care Code Off vis,est,level 2 Diagnoses Right hip pain M25.551 Osteoarthritis of right hip, unspecified osteoarthritis type M16.11 ??Osteoarthritis type: unspecified I have re-examined the patient. There are no clinical changes since date of exam
--- NOTE | 2018-12-05 09:40 | RAD_ITS ---
STUDY: X-RAY - PELVIS AND RIGHT HIP REASON FOR EXAM: Postop total hip. TECHNIQUE: 2 views of the pelvis and hip. COMPARISON: Radiographs 09/04/2018. FINDINGS: There is a small calcification adjacent to the right ischial tuberosity. There are skin eric overlying the right hip. Normal visualized bilateral iliac wings, sacroiliac joints and visualized sacrum. Normal bilateral superior and inferior pubic rami. Normal pubic symphysis. Normal bilateral ischial tuberosities. There is a right total hip arthroplasty without evidence of complication. There is orthopedic hardware in the contralateral proximal left femur. RAD/Hip Min 2 Views (Portable) IMPRESSION: Uncomplicated right total hip arthroplasty. Electronically Signed: David Puga MD at 12:14 EDT Tel , Service support ,
[2018-12-05 10:40] LABS: Bedside Glucose 100 mg/dL (70-110)
[2018-12-05] MEDS: Lactated Ringers 1,000 ML 125 ML IV (10:58)
[2018-12-05] MEDS: Cefazolin 1 GM/50 ML BAG IV ×2 (12:03→19:04)
--- NOTE | 2018-12-05 13:17 | OP.PCM_ITS ---
Report of Operation Date of Procedure: 12/05/18 Description of Surgical Findings:: Preoperative diagnosis: DJD right hip Postoperative diagnosis: Same Procedure: 8 total hip arthroplasty Implants: [place] Accolade II stem size 6 132 degree neck angle 0 neck length the 58 mm cup with 20 mm cancellous screw 36 mm ceramic head Anesthesia: Spinal EBL: 200 cc Complications: None Condition: Stable to PACU Indication for procedure: This is a 68-year-old male who has had long-standing arthrosis of the hip who has failed conservative treatment and wished to undergo total hip arthroplasty. We did discuss operative versus nonoperative intervention including risks of bleeding, infection , nerve artery tissue damag e, need for further surgery, fracture, leg length discrepancy dislocation blood clot and need for postoperative physical therapy and postoperative expectations. An informed consent was signed. Procedure: Patient was met in the preoperative holding area once again the operative extremity was identified by both patient and physician and was marked. Patient was met by anesthesia and a spinal was placed. patient was then positioned in the lateral decubitus position on a well-padded pegboard with an axillary roll. All bony prominences were checked and padded. The patient was prepped and draped in the usual sterile fashion. A timeout was called to ensure the proper patient procedure and extremity were being contemplated. Anatomic landmarks were palpated and marked for a standard posterior lateral approach. A 10 blade scalpel was used to make a posterior incision through the skin and subcutaneous tissue. In retractors were used and electrocautery was used to maintain meticulous hemostasis and dissect full-thickness flaps until the gluteal fascia was reached. The gluteal fascia was incised in line with the gluteal fibers. The bursal tissue was then freed from the underside and a Charnley retractor was placed. The fat pad was elevated off of the external rotators with electrocautery and the external rotators were dissected off of the greater trochanter including the piriformis and were tagged with #1 Ethibond for later repair. The joint capsule opened with posterior trapdoor technique. The hip was surgically dislocated. Hohmann was placed around the lesser trochanter. A neck cutting guide was used to bruno the neck with a Bovie and an oscillating saw was used complete the femoral neck cut. The femoral head was then removed and sized. We then turned our attention to the acetabulum. A Bovie was used to make a perforation in the anterior joint capsule and a pointed Hohmann was placed this was repeated in the 6 o'clock position a wide kaylene was placed there. With a long handled knife the labral and pulvinar tissue were removed. We then began sequential reaming until the appropriate size was achieved. We then fit the acetabular shell in place with good public relations assistant to the acetabulum. We then proceeded to place a posterior superior screw by drilling first measuring and inserting the screw. We then inserted a trial liner. And turned our attention back to the femur at this point a femoral elevator was used. As well as a pointed wide Hohmann around the lesser trochanter and a Hohmann to help retract the gluteus medius. A box chisel was used to remove excess lateral neck followed by a canal finder and a lateralizing reamer. This was followed by sequential broaches. Attention was made of the version within the canal. Once the final broach was seated we then trialed reduced the hip it was determined that a 132 degree neck angle with a 0 neck length was the appropriate size. We then checked ability with shuck testing as well as flexion and internal rotation. then proceeded with hip extension and checked leg lengths at the knees and heels. At this point trials were removed. A posterior lipped liner was inserted to the cup. The femoral stem was inserted. We re-trialed and then proceeded to impact the femoral head onto the Lewis taper. We then surgically reduce the hip check stability again and leg lengths and were satisfied. Betadine rinse was allowed to sit for 5 minutes while everyone changed their gloves. Thorough irrigation was performed. Followed by closure of the external rotators with #2 FiberWire followed by closure of gluteal fascia with #1 Ethibond. 0 Vicryl fat stitches and 2-0 Vicryl subcutaneous stitches and eric in the skin. Dressing was applied Mepilex Ag and an abduction pillow was placed. Patient tolerated the procedure well there was no intraoperative complications all counts were correct and the patient was brought back to the PACU in stable condition
--- NOTE | 2018-12-05 15:37 | CHAPLAIN ---
Type of Pastoral Visit _x__ Initial Visit ___ Follow-up Visit ___ On-call Visit ___ General Patient Visit ___ Spiritual Assessment ___ Family Conference ___ Bereavement ___ Rapid Response ___ Code Blue ___ Other (describe below) Pastoral Care Referral From _x__ Patient ___ Family ___ Nurse ___ Physician ___ Scrubber Machine Tender ___ Puddler Helper ___ Other (describe below) Sacrament/Intervention _x__ Active listening ___ Anointing ___ Episcopal ___ Bereavement ___ Communion ___ Rosi exploration ___ _x__ Life review _x__ Prayer ___ Reconciliation ___ Sacrament of Sick ___ Supportive presence ___ Wedding ___ Other (describe below) Pastoral Comments
[2018-12-05] MEDS: oxyCODONE 5 MG Tablet PO (16:58)
[2018-12-05 17:20] LABS: Bedside Glucose 152 mg/dL (70-110)
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
[2018-12-05] MEDS: Insulin Lispro 100 UNIT/ML INSULN.PEN SC ×2 (18:40→21:36)
[2018-12-05] MEDS: Metoprolol(XL)Succ 50 MG Tablet PO (21:34)
[2018-12-05 21:50] LABS: Bedside Glucose 210 mg/dL (70-110)
[2018-12-06] MEDS: Lactated Ringers 1,000 ML 15 ML IV (02:01)
[2018-12-06] MEDS: Cefazolin 1 GM/50 ML BAG IV (02:01)
[2018-12-06 02:04] VITALS: BP 145/77; PULSE 72; RESP 16; TEMP 36.8
[2018-12-06] MEDS: Acetaminophen 500 MG Tablet 1000 MG PO (05:42)
[2018-12-06 06:45] LABS: Hematocrit 39.1 % (40-54); Hemoglobin 13.4 g/dL (13.0-16.5); Mean Corp Hgb Conc 34.3 g/dL (32-36); Mean Corpuscular Hgb 30.9 pg (27.0-32.0); Mean Corpuscular Volume 90.1 fL (80-94); Mean Platelet Vol. 10.9 fl (6.2-12.0); Platelet Count 226 K/mm3 (150-450); RBC Distribution Width SD 42.8 fl (35.1-43.9); Red Blood Count 4.34 M/mm3 (4.6-6.2); White Blood Count 10.4 K/mm3 (4.4-11.0)
[2018-12-06] MEDS: APIXABAN 2.5 MG TABLET PO (06:52)
[2018-12-06 07:05] LABS: Anion Gap 5 (5-15); BUN 8 mg/dL (7-18); BUN/Creat Ratio 10.2 RATIO (10-20); Calcium,Total 9.1 mg/dL (8.5-10.1); Chloride 104 mmol/L (98-107); Creatinine, Serum 0.79 mg/dL (0.70-1.30); EST Glomerular Filtration Rate 105 mL/min (>60); Est Glom Filt Rate - Afr Amer 127 mL/min (>60); Estimated Creatinine Clearance 84.48 ml/min; Glucose 138 mg/dL (74-106); Potassium 3.8 mmol/L (3.5-5.1); Sodium Level 137 mmol/L (136-145)
[2018-12-06 07:06] LABS: Bedside Glucose 130 mg/dL (70-110)
[2018-12-06] MEDS: oxyCODONE 5 MG Tablet PO ×2 (08:06→12:02)
[2018-12-06 08:11] VITALS: BP 144/62; PULSE 81; RESP 18; TEMP 36.7; O2SAT 94
[2018-12-06] MEDS: Senna/Docusate Sodium 1 Tablet 2 TABLET PO (08:13)
[2018-12-06] MEDS: Ezetimibe 10 MG Tablet PO (08:13)
[2018-12-06] MEDS: amLODIPine 5 MG Tablet PO (08:13)
--- NOTE | 2018-12-06 10:40 | CASEMGMT ---
TOMAS VARGAS Face to Face with patient for initial transition planning/care coordination assessment. TOMAS VARGAS introduced self and role at [facility]. Patient sitting in chair, alert and oriented. Patient willing to participate in assessment and is able to answer all questions appropriately. Care providers, pharmacy, and demographics verified. Patient wishes to discharge home and would like [facility] for therapy. TOMAS VARGAS provided patient with list of HHC agencies in-network with insurance. Patient prefers [facility]. Patient states he will need walker and 3in1 BSC. Patient updated with DME companies and prefers [employer]. Patient states he has no further needs or concerns at this time. CM to follow for discharge planning needs that may arise. PCP: Leobardo Specialists: Hany deportation officer Preferred Pharmacy: [facility] Insurance: [facility] Prescription Benefit: yes Living Will/HPOA: none LNOK: Living Arrangements: patient lives with in ranch style home with 3 steps to enter the home. Transportation: DME/HHC: Patient states he has Cpap at home. Patient needs walker and 3 in 1 BSC. TOMAS VARGAS called and priced BSC as not covered by insurance. [facility] has 3 in 1 BSC on sale for $40. TOMAS VARGAS updated patient regarding BSC. Script received and referral sent to [facility] [place] [facility]. TOMAS VARGAS called and made referral to [facility] for PT/OT and they are able to accept. TOMAS VARGAS updated the patient. Disposition Plan: Patient to discharge home with [facility], family support, and follow-up plans in place. Rosanna PEGUERO, RN, CM
--- NOTE | 2018-12-06 11:24 | PN_ITS ---
Subjective: No issues overnight, pain is controlled Vitals/I&O's: Vital Signs Temp Pulse Resp BP Pulse Ox 98.0 F 81 18 144/62 H 94 12/06/18 08:11 12/06/18 08:11 12/06/18 08:11 12/06/18 08:11 12/06/18 08:11 Oxygen Flow Rate (L/min) 6 Oxygen Delivery Method Room Air Weight: 280 lb 3.32 oz Body Mass Index (BMI) 35.9 Finger Stick Blood Glucose 100 Intake and Output for Last 24 Hours 12/04/18 12/05/18 12/06/18 23:59 23:59 23:59 Intake Total 2534.25 / 3014.25 1320.25 / 1320.25 Output Total 1440 / 1940 1200 / 1200 Balance 1094.25 / 1074.25 120.25 / 120.25 General: Alert, Oriented x3, Cooperative, No apparent distress HEENT: Atraumatic, PERRLA, EOMI, Normocephalic Oral: Moist Mucosa Neck: Supple, No JVD Lungs: Clear to auscultation, Normal air movement, No rhonchi, No wheeze, No rales Cardiovascular: Regular rate, Regular Rhythm, Normal S1, Normal S2, No murmurs Abdomen: Soft, Non Tender, Non-Distended, No Hepato-splenomegaly Extremities: No edema, Capillary Refill Less than 3 Seconds Skin: No rashes, No breakdown, Incision - Dressing is CDI Neurological: Neuro grossly intact, Sensory exam intact to light touch and pain Psych/Mental Status: Normal Affect, Appropriate Laboratory Results 12/05/18 17:13: POC Glucose 152 H 12/05/18 21:36: POC Glucose 210 H 12/06/18 06:16: WBC 10.4, RBC 4.34 L, Hgb 13.4, Hct 39.1 L, MCV 90.1, MCH 30.9, MCHC 34.3, RDW Std Deviation 42.8, RDW Coeff of Zeke 13.0, Plt Count 226, MPV 10.9 12/06/18 06:16: Sodium 137, Potassium 3.8, Chloride 104, Carbon Dioxide 28.0, Anion Gap 5, BUN 8, Creatinine 0.79, Estim Creat Clear Calc 84.48, Est GFR (MDRD) Af Amer 127, Est GFR (MDRD) Non-Af 105, BUN/Creatinine Ratio 10.2, Glucose 138 H, Calcium 9.1 12/06/18 06:48: POC Glucose 130 H Current Medications Acetaminophen (Tylenol) 1,000 mg PO Q8 [facility] Last Admin: 12/06/18 05:42 Dose: 1,000 mg Documented by: Amlodipine Besylate (Norvasc) 5 mg PO DAILY [facility] Last Admin: 12/06/18 08:13 Dose: 5 mg Documented by: Apixaban (Eliquis) 2.5 mg PO BID [facility] Last Admin: 12/06/18 06:52 Dose: 2.5 mg Documented by: Dextrose (D50w Syringe) 0 gm IV X1 PRN; Protocol PRN Reason: Hypoglycemia Ezetimibe (Zetia) 10 mg PO DAILY [facility] Last Admin: 12/06/18 08:13 Dose: 10 mg Documented by: Glucagon () 1 mg IM .X1 PRN PRN Reason: Hypoglycemia Hydrochlorothiazide (Hctz) 25 mg PO DAILY [facility] Hydromorphone HCl (Dilaudid Inj) 0.5 mg IV Q2H PRN PRN PRN Reason: .BREAKTHROUGH PAIN (>4/10) Lactated Ringer's () 1,000 mls @ 15 mls/hr IV .Q48H [facility] Last Infusion: 12/06/18 05:48 Dose: Infused Documented by: Insulin Glargine (Lantus (Bkc)) 100 units SC QHS [facility] Last Admin: 12/05/18 21:37 Dose: 100 unit Documented by: Insulin Human Lispro (Humalog Kwikpen (Bk)) 0 unit SC ACHS [facility]; Protocol Last Admin: 12/06/18 06:51 Dose: Not Given Documented by: Ketorolac Tromethamine (Toradol) 15 mg IV Q6H PRN PRN PRN Reason: Pain Score 1-5/10 Stop: 12/07/18 09:43 Losartan Potassium (Cozaar) 100 mg PO DAILY [facility] Metoprolol Succinate (Toprol Xl (Beta Tiffanie)) 50 mg PO QHS [facility] Last Admin: 12/05/18 21:34 Dose: 50 mg Documented by: Ondansetron HCl (Zofran) 4 mg IV Q6H PRN PRN PRN Reason: NAUSEA Oxycodone HCl (Oxyir) 5 - 10 mg PO Q4H PRN PRN PRN Reason: Pain Score 4-11/30 Last Admin: 12/06/18 08:06 Dose: 10 mg Documented by: Senna/Docusate Sodium (Senokot-S, Mary Ann-Colace) 2 tablet PO BID [facility] Last Admin: 12/06/18 08:13 Dose: 2 tablet Documented by: Sodium Chloride () 5 - 15 ml IV UD PRN PRN Reason: SALINE FLUSH STROKE Vital Signs/Narrative: Vital Signs Temp Pulse Resp BP Pulse Ox 12/06/18 08:11 98.0 F 81 18 144/62 H 94 Medical Necessity - Tobacco Use Smoking Status: Never smoker Assessment/Plan 1. Right total hip replacement -Surgery date 12/05/2018 -Pain per primary -DC per primary -PT/OT -He is on Eliquis at 2.5 mg p.o. twice daily, he does have a history of A. fib so once his Eliquis at 2.5 is finished he is to resume his 5 mg twice daily. 2. Chronic A. fib/HTN/HLD -All this has been stable prior to his admission for surgery -Renal function stable continue with losartan and hydrochlorothiazide -Continue with his Norvasc, Eliquis, metoprolol, Zetia 3. DM 2 -He is on detemir 100 units subcu at night, which we will continue as well as a sliding scale insulin -Hold his metformin and his Januvia -Accu-Cheks AC at bedtime DVT: Eliquis Code Visit Inpatient E&M: 81132 Subs Hosp L2
[2018-12-06] MEDS: Insulin Lispro 100 UNIT/ML INSULN.PEN SC (12:03)
[2018-12-06 12:11] LABS: Bedside Glucose 160 mg/dL (70-110)
--- NOTE | 2018-12-06 13:24 | DCINST_ITS ---
Discharge Diet: 2000 Calorie Control Diet Call your doctor if you observe: Shortness of breath, Chest pain Additional Instructions: Begin daily showering warm water antibacterial soap postop day #3( 72hrs Post- operatively) and then daily. Leave the dressing on for 72 hours postoperatively then may remove prior to first shower and change dressing daily after this until no drainage for 2 consecutive days then may leave open to air. Follow hip precautions as reviewed by hospital physical therapist. Call with any concerns Allergies/Adverse Reactions: Allergies Xjjbbbk-Asn-Grv Reductase Inhibitor Allergy (Verified 11/30/18 14:05) muscle pain Medications to take at Discharge apixaban 5 mg tablet 5 mg PO BID 09/02/17 coenzyme Q10 200 mg capsule 200 mg PO QDAY 09/02/17 ezetimibe 10 mg tablet 10 mg PO QDAY 09/02/17 insulin detemir (U-100) 100 unit/mL (3 mL) subcutaneous pen 100 unit SC QHS 09/02/17 metformin ER 500 mg tablet,extended release 24hr 1,000 mg PO BID 09/02/17 metoprolol succinate ER 50 mg tablet,extended release 24 hr 50 mg PO QHS 09/02/17 multivitamin tablet 1 tab PO QDAY 09/02/17 sitagliptin 100 mg tablet 100 mg PO QDAY 09/02/17 omega-3 fatty acids 1,000 mg capsule 1,000 mg PO DAILY 10/08/18 amlodipine 5 mg tablet 5 mg PO DAILY #90 tab 10/11/18 Hydrochlorothiazide [Hctz] 25 mg PO DAILY 11/30/18 Losartan Potassium [Cozaar] 100 mg PO DAILY 11/30/18 Acetaminophen [Tylenol] 1,000 mg PO Q8 #60 tab 12/06/18 Oxycodone [Oxyir] 5 - 10 mg PO Q4H PRN PRN #60 tab 12/06/18 The following prescriptions were given: Oxycodone [Oxyir] 5 - 10 mg PO Q4H PRN PRN #60 tab PRN Reason: Pain Score 4-10/10 Transmission Status: Received by [id number] Acetaminophen [Tylenol] 1,000 mg PO Q8 #60 tab Transmission Status: Received by [facility] #[id number] Primary Care Physician: Singh Booth MD [Primary Care Provider] - Test Results: Test results from this visit will be discussed in further detail at your follow- up appointment, if applicable. Please Follow Up With: Leonel Marshall DO - 2 weeks
--- NOTE | 2018-12-06 13:28 | DS.PCM_ITS ---
Discharge Date and Diagnosis Date of Admission: 12/05/18 Date of Discharge: 12/06/18 - Secondary Discharge Diagnosis Chronic Problems (Last Reviewed 10/11/18 @ 14:47 by Tim Leach MD) Hyperlipidemia (Chronic) Chronic atrial fibrillation (Chronic) Essential (primary) hypertension (Chronic) Hospital Course and Treatment Operations: total hip replacement Summary of Care Provided: The patient is a 68 year old M underwent right total hip arthroplasty on date of admission without any intraoperative complications. Patient has failed can conservative treatment wished to undergo the elective procedure. Patient underwent the procedure without any intraoperative complications did receive pre-and postoperative antibiotics which were discontinued within 23 hours postoperatively. Patient did receive trans-examined acid and vital signs remained stable postoperatively as well as hemoglobin and hematocrit and did not require any blood transfusion. Seen by physical therapy did progress ambulation was started on both mechanical chemical DVT prophylaxis in the form of SCDs ROSI hose and Eliquis twice daily for which patient will continue preoperative dose of 5 mg twice daily post hospital discharge. To be set up with home health care at home physical therapy will follow-up in the office in 2 weeks for staple removal wound check and conversion to outpatient physical therapy. Subjective: Doing well pain controlled no fevers chills nausea vomiting shortness of breath chest pain - Physical Exam General: Alert, Oriented x3, Cooperative, No apparent distress Extremities: - - Compartment soft neurovascular intact dressing clean dry and intact no sign of infection Vital Signs Temp Pulse Resp BP Pulse Ox 98.0 F 81 18 144/62 H 94 12/06/18 08:11 12/06/18 08:11 12/06/18 08:11 12/06/18 08:11 12/06/18 08:11 Oxygen Flow Rate (L/min) 6 Oxygen Delivery Method Room Air Weight: 280 lb 3.32 oz Body Mass Index (BMI) 35.9 Finger Stick Blood Glucose 100 Intake and Output for Last 24 Hours 12/04/18 12/05/18 12/06/18 23:59 23:59 23:59 Intake Total 2534.25 / 3014.25 1320.25 / 1320.25 Output Total 1440 / 1940 1200 / 1200 Balance 1094.25 / 1074.25 120.25 / 120.25 Laboratory Tests Past 24 Hrs 12/06/18 12/06/18 06:16 06:16 WBC 10.4 RBC 4.34 L Hgb 13.4 Hct 39.1 L MCV 90.1 MCH 30.9 MCHC 34.3 RDW Std Deviation 42.8 RDW Coeff of Zeke 13.0 Plt Count 226 MPV 10.9 Sodium 137 Potassium 3.8 Chloride 104 Carbon Dioxide 28.0 Anion Gap 5 BUN 8 Creatinine 0.79 Estim Creat Clear Calc 84.48 Est GFR (MDRD) Af Amer 127 Est GFR (MDRD) Non-Af 105 BUN/Creatinine Ratio 10.2 Glucose 138 H Calcium 9.1 POC Glucose 12/06/18 12/06/18 12/05/18 11:52 06:48 21:36 POC Glucose 160 H 130 H 210 H 12/05/18 17:13 POC Glucose 152 H Discharge Diet: 1999 Calorie Control Diet Call your doctor if you observe: Shortness of breath, Chest pain Home Medications: Medications to take at Discharge apixaban 5 mg tablet 5 mg PO BID 09/02/17 coenzyme Q10 200 mg capsule 200 mg PO QDAY 09/02/17 ezetimibe 10 mg tablet 10 mg PO QDAY 09/02/17 insulin detemir (U-100) 100 unit/mL (3 mL) subcutaneous pen 100 unit SC QHS 09/02/17 metformin ER 500 mg tablet,extended release 24hr 1,000 mg PO BID 09/02/17 metoprolol succinate ER 50 mg tablet,extended release 24 hr 50 mg PO QHS 09/02/17 multivitamin tablet 1 tab PO QDAY 09/02/17 sitagliptin 100 mg tablet 100 mg PO QDAY 09/02/17 omega-3 fatty acids 1,000 mg capsule 1,000 mg PO DAILY 10/08/18 amlodipine 5 mg tablet 5 mg PO DAILY #90 tab 10/11/18 Hydrochlorothiazide [Hctz] 25 mg PO DAILY 11/30/18 Losartan Potassium [Cozaar] 100 mg PO DAILY 11/30/18 Acetaminophen [Tylenol] 1,000 mg PO Q8 #60 tab 12/06/18 Oxycodone [Oxyir] 5 - 10 mg PO Q4H PRN PRN #60 tab 12/06/18 Following Prescrptions Were Given to Patient: Oxycodone [Oxyir] 5 - 10 mg PO Q4H PRN PRN #60 tab PRN Reason: Pain Score 4-10/10 Transmission Status: Received by [id number] Acetaminophen [Tylenol] 1,000 mg PO Q8 #60 tab Transmission Status: Received by [id number] Primary Care Physician: Singh Booth MD [Primary Care Provider] - Please Follow Up With: Leonel Marshall DO - 2 weeks Additional Instructions: Begin daily showering warm water antibacterial soap postop day #3( 72hrs Post- operatively) and then daily. Leave the dressing on for 72 hours postoperatively then may remove prior to first shower and change dressing daily after this until no drainage for 2 consecutive days then may leave open to air. Follow hip precautions as reviewed by hospital physical therapist. Call with any concerns Medical Necessity - Tobacco Use Smoking Status: Never smoker Meaningful Use Info Meaningful Use Diagnoses (Choose all that apply): None applicable
[2018-12-06 13:30] VITALS: BP 157/74; PULSE 90; RESP 18; TEMP 37.4; O2SAT 95
== END 2018-12-06 14:10 | disposition home or self-care (01) | DRG 470 ==
LOC: ACINP 05:22 → MS3 12:17
PROVIDERS: Admitting Provider Orthopaedic Surgery; Family Provider Family Medicine; PCP Family Medicine; Referring Provider Orthopaedic Surgery; Visit Provider Orthopaedic Surgery
PROC: 0SR90JZ Replacement of Right Hip Joint with Synthetic Substitute, Open Approach (ICD-10-PCS; CPT 27130; principal; 2018-12-05 07:05)
DX: M16.11 Unilateral primary osteoarthritis, right hip (principal); I48.20 Chronic atrial fibrillation, unspecified; E78.5 Hyperlipidemia, unspecified; E11.40 Type 2 diabetes mellitus with diabetic neuropathy, unspecified; E66.9 Obesity, unspecified; Z68.35 Body mass index [BMI] 35.0-35.9, adult; I10 Essential (primary) hypertension; G47.33 Obstructive sleep apnea (adult) (pediatric); K57.90 Diverticulosis of intestine, part unspecified, without perforation or abscess without bleeding; Z79.4 Long term (current) use of insulin; Z79.02 Long term (current) use of antithrombotics/antiplatelets
CPT/HCPCS: 36415; 73502; 80048; 82962; 85027; 87081; 97110; 97162; 97166; 97530; C1776; J7120; J2405

== ENCOUNTER 2019-02-02 07:00 | Outpatient (RCR) | payer OTHER, SELFPAY ==
[2018-12-18 07:51] VITALS: BMI 35.9
--- NOTE | 2018-12-25 09:26 | HP.PTEVAL ---
Patient's Visit Information SEBASTIÁN CONROY Jr. is a 68 year old M referred to Physical Therapy by Leonel Marshall DO with a diagnosis of R ARIA s/p 12-05-18. Date of Evaluation: 12/25/18 Physical Therapist: LUIS Desir - Visit Plan Frequency: 3x /Week Duration: 4 Weeks Plan: 3X/ week for 4 weeks for R hip strengthening, gait training, balance activites, functional activities with HEP while maintain THR precautions for posterior hip. - Subjective Findings: Pt reports that he is doing well. He went home with very little pain and has been taking Tylenol if he does anything. Tuesday he used a leaf blower for an hour and he was sore afterwards. He went to [employer] on Tuesday and he had a lot of standing. He tried stairs a week ago today and yesterday he was up and down a couple of times. Last he weaned from the cane. He was off the walker in 10 days..... 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 He saw Dr Marshall a week ago. He had a posterior hip replacement. said he is ok to start stationary bike. He has a stationary bike at home but he breaks 90 degree hip flexion with full revolutions. He had home PT. Pt is not driving yet because he does not feel comfortable going break to pedel fast at this point. - Pain R ARIA Pain Intensity (Out of 10): 0 Pain Intensity Range: 3 Comment: with walking - Objective Gait: Walks with slight antalgic gait with decreased stance time on the R. R knee AROM 110 degrees and -2 degrees knee extension. R hip PROM to approx 80 degrees felxion. Stairs: up and down recip with some hesitation descending with the R leg first and using 2 hand rails. Pt is able to get up out of a chair without using his arms but has a slight retro LOB corrected with back of knees on the seat of chair. Pt is able to SLR without an extension lag. Pt is able to S/L hip abd with slight signs of weakness. Pt is able to 1/2 normal ROM bridge - Goals Goal 1:: I HEP Goal Time Frame: 4-6 Weeks Goal 2:: Increase R hip strength to be able to do 3 X 15 SLR without any signs of weakness or pain Goal Time Frame: 4-6 Weeks Goal 3:: Be able to walk without an antalgic gait Goal Time Frame: 4-6 Weeks Goal 4:: Be able to go up and down the stairs recip with 1 hand rail without any hesitance Goal Time Frame: 4-6 Weeks - Rehabilitation Potential Rehabilitation Potential: Good - Anticipated Interventions Patient/Client Instruction: Educate patient on: Condition, Plan of Care For the Purpose of:: To decrease pain, To increase ROM, To improve nutrient delivery to tissue, To improve muscle performance and motor function, To improve ability to perform ADL's, To increase tolerance to activity/condition/position, To improve performance and independence with ADL's, To improve ability of physical actions for home/community/work/leisure, To improve gait and locomotor functions, To increase flexibility/ROM, To improve safety with gait Therapeutic Exercise to Include: Strength training, Balance training, Gait and locomotor training, Active ROM For the Purpose of:: To decrease pain, To increase ROM, To improve nutrient delivery to tissue, To improve muscle performance and motor function, To improve ability to perform ADL's, To increase tolerance to activity/condition/position, To improve performance and independence with ADL's, To improve gait and locomotor functions, To improve health of tissue, To increase flexibility/ROM, To improve balance, To improve safety with gait Functional Training to Include: Gait training For the Purpose of:: To improve gait and locomotor functions, To improve safety with gait Thank you for the opportunity to evaluate your patient. For Medicare and Medicare HMO plans, please review the plan of care and approve it. It will need to be FAXED BACK to us at [phone] for Medicare purposes. For Medicare only, by signing this I certify the plan of care. Please let me know if there are questions or concerns regarding this plan of care. Physician Signature: Date:
--- NOTE | 2019-02-02 07:36 | HP.PTDCSUM ---
HP - PT D/C Summary It has been my pleasure to treat SEBASTIÁN CONROY . under orders from Leonel Marshall DO, for the diagnosis of R ARIA s/p 12-05-18 for a total of 15 visit(s). Discharge Date: 02/02/19 Please see the following information for a summary of their discharge status. - Subjective Subjective: Pt feels good. He feels he is down to where he is sitting and the first few steps are hard and then everything is ok. He hopped onto his road bike the other day and was fine. - Pain R ARIA Pain Intensity (Out of 10): 0 - Overall Improvement % Improvement: 90 - Objective Objective/Function: Stairs: up and down stairs recip with 2 hand rails. Gait: Walks with a normal gait pattern. LE MMT: R hip flex 4/5, knee ext and knee flex 4+/5, hip abd 4/5. Pt is able to do 3 X 15 SLR - Goals Goal 1:: I HEP Goal Progress: Goal Met Goal 2:: Increase R hip strength to be able to do 3 X 15 SLR without any signs of weakness or pain Goal Progress: Goal Met Goal 3:: Be able to walk without an antalgic gait Goal Progress: Goal Met Goal 4:: Be able to go up and down the stairs recip with 1 hand rail without any hesitance Goal Progress: Goal Met - Plan Plan: DC PT to HEP - D/C Information Discharge Comments: DC PT to HEP If there are questions or concerns regarding this patient's physical therapy, please feel free to call me at [phone]. Thank you for the referral of this patient. Sincerely, Emily German, MPT
== END 2019-02-02 19:00 | disposition home or self-care (01) ==
LOC: PT 07:00
PROVIDERS: Family Provider Family Medicine; PCP Family Medicine; Referring Provider Orthopaedic Surgery; Visit Provider Orthopaedic Surgery
DX: Z47.1 Aftercare following joint replacement surgery (principal); Z96.641 Presence of right artificial hip joint
CPT/HCPCS: 97110; 97161; 97530